=== PATIENT | male | born 1985 | race African-American/Black ===

== ENCOUNTER 2017-08-02 02:57 | Emergency (ER) | payer MEDICAID ==
[~2017-08-02] VITALS: Ht 175.3 cm; Wt 73.0 kg
[2017-08-02] MEDS ORDERED: HYDROCODONE/ACETAMINOPHEN 5/325MG TABLET PO ONE (07:45)
[2017-08-02 08:22] LABS: BASOPHILS % 0.6 % (0.0-2.0); EOSINOPHILS % 2.4 % (0.0-5.0); HEMATOCRIT. 34.2 % (42.0-52.0); HEMOGLOBIN. 11.7 g/dL (14.0-18.0); LYMPHOCYTES % 36.6 % (20.0-50.0); MEAN CORPUSCULAR HEMOGLOBIN 29.8 pg (28.0-32.0); MEAN CORPUSCULAR VOLUME 87.1 fL (80.0-94.0); MEAN PLATELET VOLUME 7.9 fl (7.4-10.4); MONOCYTES % 9.7 % (2.0-8.0); NEUTROPHILS % 50.7 % (40.0-76.0); PLATELET 240 x1000/uL (130-400); RED BLOOD CELL COUNT 3.92 mill/uL (4.7-6.1); RED CELL DISTRIBUTION WIDTH 14.1 % (11.6-14.6)
[2017-08-02 08:25] LABS: CHLORIDE 106 mEq/L (98-107)
[2017-08-02 08:33] LABS: CARBON DIOXIDE 28 mEq/L (21-32)
[2017-08-02 09:44] VITALS: BP 109/59
== END 2017-08-02 10:59 | disposition home or self-care (01) ==
LOC: ER 02:57
DX: S81.802A Unspecified open wound, left lower leg, initial encounter (principal); W34.00XA Accidental discharge from unspecified firearms or gun, initial encounter; Y93.89 Activity, other specified; Y92.89 Other specified places as the place of occurrence of the external cause; Y99.8 Other external cause status
CPT/HCPCS: 36415; 73590; 80053; 85025; 93971; 99285; Z7610

== ENCOUNTER 2020-04-26 23:09 | Emergency (ER) | payer MEDICAID ==
[~2020-04-26] VITALS: Ht 175.3 cm; Wt 74.9 kg
[2020-04-26 23:21] VITALS: BP 125/67
== END 2020-04-27 02:02 | disposition home or self-care (01) ==
LOC: ER 23:27
DX: L03.113 Cellulitis of right upper limb (principal)
CPT/HCPCS: 99283

== ENCOUNTER 2021-11-01 22:28 | Emergency (ER) | payer MEDICAID ==
[~2021-11-01] VITALS: Ht 175.3 cm; Wt 81.5 kg
[2021-11-01] MEDS ORDERED: TOPUD MT (22:37)
[2021-11-01] MEDS ORDERED: CHLO473M2 MT (22:37)
[2021-11-01] MEDS ORDERED: IBUP-2028 MT (22:37)
[2021-11-01] MEDS ORDERED: ACETAMINOPHEN 325MG TABLET PO ONE (22:45)
[2021-11-01 23:15] VITALS: BP 100/61
== END 2021-11-01 23:18 | disposition home or self-care (01) ==
LOC: ER 22:28
DX: S02.5XXA Fracture of tooth (traumatic), initial encounter for closed fracture (principal); K08.89 Other specified disorders of teeth and supporting structures; X58.XXXA Exposure to other specified factors, initial encounter; Y93.89 Activity, other specified; Y92.89 Other specified places as the place of occurrence of the external cause; Y99.8 Other external cause status
CPT/HCPCS: 99282

== ENCOUNTER 2021-12-16 07:43 | Emergency (ER) | payer MEDICAID ==
[~2021-12-16] VITALS: Ht 175.3 cm; Wt 78.0 kg
[~2021-12-16 07:43] MED LIST: CHLO473M2 MT; IBUP-2028 MT; TOPUD MT
[2021-12-16] MEDS ORDERED: OXYMETAZOLINE HCL NASAL SPRAY 15ML BOTHNSTRLS STA (08:12)
[2021-12-16] MEDS ORDERED: FLUT9.9S BOTHNSTRLS (08:30)
[2021-12-16] MEDS ORDERED: LORA5TAB8 PO (08:30)
[2021-12-16 09:14] VITALS: BP 128/73
== END 2021-12-16 09:15 | disposition home or self-care (01) ==
LOC: ER 07:43
DX: R09.81 Nasal congestion (principal); Z79.899 Other long term (current) drug therapy
CPT/HCPCS: 99283